=== PATIENT | female | born 1930 | race Caucasian/White ===

== ENCOUNTER 2017-06-16 15:49 | Observation (INO) | payer OTHER ==
--- NOTE | 2017-06-16 16:40 | PDOC ---
History of Present Illness <Lorenzo Whitfield - Last Filed: 06/16/17 18:53> <Nadia Garner - Last Filed: 06/16/17 19:55> - General History Source: Patient Exam Limitations: No Limitations - History of Present Illness Initial Comments: 06/16/17 18:04 The patient is an 87 year old female with past medical history of hypertension, PA x2, dementia, and anxiety who was brought in by her daughter for hallucinations that began last night. As per daughter, the patient is hallucinating that there are people in her house and that she is watching two young children. The daughter explains that this symptom is not typical of her dementia baseline where the patient is typically disoriented to time. The daughter adds that the patient finished a course of antibiotics to treat a UTI two days ago. They do notice sIn the ED, the patient is a asymptomatic. She denies any fever, chills, nausea, vomiting, diarrhea, cough, shortness of breath , chest pain, urinary symptoms, or headache. No self injurious or threatening behavior. PCP: The patient has a visiting doctors service. Cardiology: At [facility] <Deedee Rios - Last Filed: 06/16/17 20:01> - General Chief Complaint: Psychiatric Stated Complaint: CONFUSION Time Seen by Provider: 06/16/17 15:52 Past History <Lorenzo Whitfield - Last Filed: 06/16/17 18:53> <Nadia Garner - Last Filed: 06/16/17 19:55> <Deedee Rios - Last Filed: 06/16/17 20:01> - Past Medical History Allergies/Adverse Reactions: Allergies Allergy/AdvReac Type Severity Reaction Status Date / Time lisinopril Allergy Verified 06/16/17 15:52 Home Medications: Ambulatory Orders Aspirin [ASA -] 81 mg PO DAILY 06/16/17 Donepezil HCl 5 mg PO DAILY 06/16/17 Hydrochlorothiazide [Hctz -] 12.5 mg PO DAILY 06/16/17 Losartan Potassium [Cozaar] 500 mg PO DAILY 06/16/17 Metformin HCl [Metformin HCl ER] 500 mg PO TID 06/16/17 Metoprolol Succinate [Toprol Xl] 100 mg PO DAILY 06/16/17 Rosuvastatin Calcium [Crestor] 10 mg PO DAILY 06/16/17 Sitagliptin Phosphate [Januvia] 50 mg PO DAILY 06/16/17 Review of Systems - Review of Systems Able to Perform ROS?: Yes Comments:: 06/16/17 18:04 History may be limited due to dementia CONSTITUTIONAL: No reported: Fever, Chills, Diaphoresis, Generalized Weakness, Malaise, Loss of Appetite HEENT: No reported: Rhinorrhea, Nasal Congestion, Throat Pain, Throat Swelling, Difficulty Swallowing, Mouth Swelling, Ear Pain, Eye Pain, Visual Changes CARDIOVASCULAR: No reported: Chest Pain, Syncope, Palpitations, Irregular Heart Rate, Lightheadedness, Peripheral Edema RESPIRATORY: No reported: Cough, Shortness of Breath, SOB with Exertion, Orthopnea, Wheezing , Stridor, Hemoptysis GASTROINTESTINAL: No reported: Abdominal pain, Abdominal Distension, Nausea, Vomiting, Diarrhea, Constipation, Melena, Hematochezia GENITOURINARY: No reported: Dysuria, Frequency, Urgency, Hesitancy, Flank Pain, Genital Pain MUSCULOSKELETAL: No reported: Myalgia, Arthralgia, Joint Swelling, Back pain, Neck Pain SKIN: No reported: Rash, Itching, Pallor HEMEATOLOGIC/IMMUNOLOGIC: No reported: Easy Bleeding, Easy Bruising, Lymphadenopathy, Frequent infections ENDOCRINE: No reported: Unexplained Weight Gain, Unexplained Weight Loss, Heat Intolerance , Cold Intolerance NEUROLOGIC: No reported: Headache, Focal Weakness, Paresthesias, Vertigo, Lightheadedness, Unsteady Gait, Seizure, Mental Status Changes, Incontinence PSYCHIATRIC: Reported: Hallucinations No reported: Anxiety, Depression All Other Systems: Reviewed and Negative <Deedee Rios - Last Filed: 06/16/17 20:01> *Physical Exam - Vital Signs Last Vital Signs Temp Pulse Resp BP Pulse Ox 98.3 F 67 20 156/82 99 06/16/17 19:52 06/16/17 19:52 06/16/17 19:52 06/16/17 19:52 06/16/17 19:52 <Nadia Garner - Last Filed: 06/16/17 19:55> - Vital Signs Last Vital Signs Temp Pulse Resp BP Pulse Ox 97.5 F L 78 17 143/65 100 06/16/17 15:51 06/16/17 15:51 06/16/17 15:51 06/16/17 15:51 06/16/17 15:51 - Physical Exam Comments: 06/16/17 18:05 GENERAL: The patient is awake, alert, and oriented x 2 Nontoxic - in no acute distress. HEAD: Normocephalic, atraumatic. EYES: extraocular movements intact, sclera anicteric, conjunctiva clear. ENT: Normal voice, Moist mucous membranes. NECK: Normal range of motion, supple LUNGS: Breath sounds equal, clear to auscultation bilaterally. No wheezes, no rhonchi, no rales. HEART: Regular rate and rhythm, normal S1 and S2 without murmur, rub or gallop. ABDOMEN: Soft, nontender, normoactive bowel sounds. No guarding, no rebound. . No CVA tenderness EXTREMITIES: Normal range of motion, +1 edema b/l. No cords, erythema, or tenderness. PSYCH: Normal mood, normal affect. SKIN: Warm, Dry, normal turgor, NEURO: Mental status: The patient is oriented x2. Cranial nerves: Cranial nerves II through XII are intact Motor: The upper extremities are 5 over 5 in all muscle groups. The lower extremities are 5 over 5 in all muscle groups. Negative pronator drift Sensation: Sensation is intact to light touch throughout. <Deedee Rios - Last Filed: 06/16/17 20:01> Heart Score/ECG Review - ECG Impressions Comment:: 06/16/17 17:30 Twelve-lead EKG was performed and reviewed by me. There is normal sinus rhythm with a normal rate. rate of 70 left axis deviation There is abnormal R wave progression inferior q waves <Lorenzo Whitfield - Last Filed: 06/16/17 18:53> ED Treatment Course - LABORATORY CBC & Chemistry Diagram: 06/16/17 17:20 06/16/17 17:20 - RADIOLOGY Radiology Studies Ordered: Category Date Time Status HEAD CT WITHOUT CONTRAST [CT] Stat CT Scan 06/16/17 16:35 Ordered <Lorenzo Whitfield - Last Filed: 06/16/17 18:53> - LABORATORY CBC & Chemistry Diagram: 06/16/17 17:20 06/16/17 17:20 - ADDITIONAL ORDERS Additional order review: Laboratory Results 06/16/17 06/16/17 18:53 17:20 Sodium 132 L Potassium 3.6 Chloride 97 L Carbon Dioxide 27 Anion Gap 8 BUN 20 H Creatinine 1.2 Creat Clearance w eGFR 42.40 Random Glucose 267 H Calcium 9.7 Total Bilirubin 0.6 AST 19 ALT 13 Alkaline Phosphatase 68 Total Protein 7.1 Albumin 3.5 Urine Color Yellow Urine Appearance Clear Urine pH 5.0 Ur Specific Wing 1.015 Urine Protein Negative Urine Glucose (UA) Negative Urine Ketones Negative Urine Blood Negative Urine Nitrite Negative Urine Bilirubin Negative Urine Urobilinogen 0.2 Ur Leukocyte Esterase Negative 06/16/17 17:20 RBC 4.64 MCV 89.0 MCHC 32.9 RDW 14.3 MPV 10.3 Neutrophils % 78.5 Lymphocytes % 10.4 Monocytes % 8.0 Eosinophils % 0.6 Basophils % 2.5 H - RADIOLOGY Radiology Studies Ordered: Category Date Time Status CHEST PA & LAT [RAD] Stat Radiology 06/16/17 19:52 Ordered <Nadia Garner - Last Filed: 06/16/17 19:55> - LABORATORY CBC & Chemistry Diagram: 06/16/17 17:20 06/16/17 17:20 - ADDITIONAL ORDERS Additional order review: Laboratory Results 06/16/17 17:20 Sodium 132 L Potassium 3.6 Chloride 97 L Carbon Dioxide 27 Anion Gap 8 BUN 20 H Creatinine 1.2 Creat Clearance w eGFR 42.40 Random Glucose 267 H Calcium 9.7 Total Bilirubin 0.6 AST 19 ALT 13 Alkaline Phosphatase 68 Total Protein 7.1 Albumin 3.5 06/16/17 17:20 RBC 4.64 MCV 89.0 MCHC 32.9 RDW 14.3 MPV 10.3 Neutrophils % 78.5 Lymphocytes % 10.4 Monocytes % 8.0 Eosinophils % 0.6 Basophils % 2.5 H <Deedee Rios - Last Filed: 06/16/17 20:01> Medical Decision Making - Medical Decision Making 06/16/17 16:36 87y F hx of htn, hl, dm, cad s/p CABG, dementia, presents with AMS. Per daugther , the patient was recently treated with a UTI by her visiting doctor. For the pst 2 days, she has been having some occasional hallucinations where she is seeing things (ie: people that arent there). The pt has no other ocmplaints including cp, abd pain, headache, vision change, numbness/tingling/weakness, n/v , f/c, diarrhea, foul smelling urine. consider anemia, metabolic dernagement, glucose derangement, occult infection will ck labs, ua, ct head, ekg will reassess A portion of this note was documented by scribe services under my direction. I have reviewed the details of the note, within reason, and agree with the documentation with the following case summary and management plan written by me 06/16/17 18:06 ct head negative for acute disease labs noted for wbc of 15 labs otherwise unremaraklble UA/culture pending 06/16/17 18:53 pt will be signed out to dr. garner to reassess and disposition pt just urinated and will be sent ot the lab <Lorenzo Whitfield - Last Filed: 06/16/17 18:53> *DC/Admit/Observation/Transfer <Lorenzo Whitfield - Last Filed: 06/16/17 18:53> - Discharge Dispostion Admit: Yes <Nadia Garner - Last Filed: 06/16/17 19:55> - Attestations Scribe Attestion: 06/16/17 18:05 Documentation prepared by Deedee Rios, acting as vice president medical affairs for Lorenzo Whitfield MD. <Deedee Rios - Last Filed: 06/16/17 20:01> Diagnosis at time of Disposition: Diarrhea, Abdominal distension (gaseous), Altered mental state, Dehydration - Referrals Referrals: STAFF,NOT ON [Primary Care Provider] -
[2017-06-16 17:43] LABS: BASOPHIL 2.5 % (0-2.0); EOSINOPHIL 0.6 % (0-4.5); MCH 29.3 pg (25.7-33.7); MCHC 32.9 g/dl (32.0-36.0); MEAN PLT VOLUME 10.3 fl (7.5-11.1); NEUTROPHILS 78.5 % (42.8-82.8); PLATELET COUNT 304 K/MM3 (134-434); RDW 14.3 % (11.6-15.6); WHITE BLOOD COUNT 15.8 K/mm3 (4.0-10.8)
[2017-06-16 17:53] LABS: ALBUMIN 3.5 g/dl (3.5-5.0); ALK PHOS 68 U/L (32-92); ANION GAP 8 (8-16); BILIRUBIN,TOTAL 0.6 mg/dl (0.2-1.0); CALCIUM 9.7 mg/dl (8.4-10.2); CO2 27 mmol/L (22-28); CREATININE 1.2 mg/dl (0.6-1.3); GLUCOSE,RANDOM 267 mg/dl (74-106); SGOT/AST 19 U/L (10-42); SGPT/ALT 13 U/L (10-40); TOT PROT 7.1 g/dl (6.4-8.3)
[2017-06-16 19:00] LABS: URINE APPEARANCE Clear; URINE BILIRUBIN Negative (NEGATIVE); URINE BLOOD Negative (NEGATIVE); URINE GLUCOSE (UA) Negative (NEGATIVE); URINE KETONE Negative (NEGATIVE); URINE LEUK ESTERASE Negative (NEGATIVE); URINE NITRITE Negative (NEGATIVE); URINE PROTEIN Negative (NEGATIVE); URINE UROBILINOGEN 0.2 (0.2-1.0)
[2017-06-16 19:01] LABS: URINE COLOR YELLOW
[2017-06-16] MEDS ORDERED: ONDANSETRON 4 MG/2 ML VIAL IVPB PRN (21:41)
--- NOTE | 2017-06-16 21:43 | HP ---
Admitting History and Physical - Admission Chief Complaint: hallucinations History of Present Illness: 87 year old Syriac speaking female with past medical history of hypertension, CO x2, dementia, TIA, osteoporosis, and anxiety who was brought in by her daughter for hallucinations that began last night. Pt daughter at bedside and provided much of history and translation. Pt denies sob, cp, cough, fevers, chills, nausea, vomiting. Denies numbness, tingling, visual changes, speech changes, syncope, heart palps, headache, limb weakness. Pt's Dtr reports pt had some soiled undergarments but no diarrhea that she could recall. Pt denies any abdominal pain. 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 Denies tobacco, rec drugs, alcohol Famhx- [place] PCP- Doctors who make house calls Cards- Dr Smith [facility] [phone] Ros neg except for HPI Pex Gen- in nad, alert Hent- at/nc, mumtaz, neck supple, trachea midline Resp- no cough, lungs ctab, no ronchi, no wheeze, no rales, no cyanosis Cards- s1s2 heard, no JVD, trace leg edema, RRR Musk- normal arom bue/ble, no back pain psych- cooperative, normal affect, no agitation Neuro- no focal deficits, speech clear, cn 2-12 grossly intact, strength 5/5 bue/ble Gi- distended abdomen, no guarding, no rebound, no rigidity Skin- intact, no erythema Prob list hallucinations (visual) AMS dm htn cad dementia anxiety distended abdomen A/p- 87 year old female with past medical history of cad s/p cardiac stents, hypertension, osteoporosis, CO x2, TIA, hlp dementia, and anxiety who was brought in by her daughter for hallucinations that began last night. 1.AMS Pt alert and oriented x 3 on exam. Pt's DTR reports episode of pt hallucinating seeing people. recently treated for UTI with ABX. CTH negative Cxr appears clear by my eye Ucx pending, Ua with no signs of infection Follow up tsh, rpr, b12, psych/ neurology consult 2. Leukocytosis ?dehydration Monitor labs 3. Distended abdomen Check AXR 4.Hyponatremia possibly combination dehydration +/- hctz hold diuretic monitor labs 5.DM SSI Monitor F/S diabetic diet 6.HTn Stable hold hctz 2/2 mild hyponatremia and possible dehydration 7.Dementia cont home meds 8. Anxiety (stable) Monitor of meds 9. Cad cont ASA dvt prophy scds, oob, hep sq fen gentle hydration diabetic diet dispo- admission for AMS History Source: Patient, Family Member, Medical Record Limitations to Obtaining History: Dementia, Language Barrier - Smoking History Smoking history: Never smoked Have you smoked in the past 12 months: No - Alcohol/Substance Use Hx Alcohol Use: No Home Medications - Allergies Allergies/Adverse Reactions: Allergies Allergy/AdvReac Type Severity Reaction Status Date / Time lisinopril Allergy Verified 06/16/17 15:52 - Home Medications Home Medications: Ambulatory Orders Aspirin [ASA -] 81 mg PO DAILY 06/16/17 Donepezil HCl 5 mg PO DAILY 06/16/17 Hydrochlorothiazide [Hctz -] 12.5 mg PO DAILY 06/16/17 Losartan Potassium [Cozaar] 500 mg PO DAILY 06/16/17 Metformin HCl [Metformin HCl ER] 500 mg PO TID 06/16/17 Metoprolol Succinate [Toprol Xl] 100 mg PO DAILY 06/16/17 Rosuvastatin Calcium [Crestor] 10 mg PO DAILY 06/16/17 Sitagliptin Phosphate [Januvia] 50 mg PO DAILY 06/16/17 Physical Examination Vital Signs: Vital Signs Temperature 98.3 F 06/16/17 19:52 Pulse Rate 67 06/16/17 19:52 Respiratory Rate 20 06/16/17 19:52 Blood Pressure 156/82 06/16/17 19:52 O2 Sat by Pulse Oximetry (%) 99 06/16/17 19:52 Visit type - Emergency Visit Emergency Visit: Yes ED Registration Date: 06/16/17 Care time: The patient presented to the Emergency Department on the above date and was hospitalized for further evaluation of their emergent condition. - New Patient This patient is new to me today: Yes Date on this admission: 06/18/17 - Critical Care Critical Care patient: No
[2017-06-16 22:48] VITALS: BMI 23.7
[2017-06-16] MEDS ORDERED: QUEtiapine FUMARATE 25 MG TABLET (FP) PO ONE (23:24)
[2017-06-16] MEDS ORDERED: INSULIN (NOVOLOG) ASPART 100 UNITS/ML 10ML VIAL ONE (23:34)
[2017-06-16] MEDS: SODIUM CHLORIDE 1,000 ML IV SCH (23:47)
[2017-06-16] MEDS: INSULIN SLIDING SCALE (NOVOLOG) 1 VIAL SQ SCH (23:47)
[2017-06-17] MEDS: INSULIN SLIDING SCALE (NOVOLOG) 1 VIAL SQ SCH ×4 (06:27→22:02)
--- NOTE | 2017-06-17 08:41 | CON.NEURO ---
Consult Consult Specialty:: Neurology Reason for Consultation:: AMS - History of Present Illness History of Present Illness: 87 year old Serbian speaking female with past medical history of DM , hypertension, KS x2, dementia, TIA, osteoporosis, and anxiety who was brought in by her daughter for hallucinations that began last night. Pt daughter at bedside and provided much of history and translation. Pt is living alone and has had AMS since past week ; her aid is changed and her daughter is not sure if she has been enough food intake . She has had UTI and has received abx ; she has been delirious and hallucinating lately; her gait is worsening , uses walker at home; denies fall, dysarthria , headache , visual symptoms etc. 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 Denies tobacco, rec drugs, alcohol Famhx- [place] PCP- Doctors who make house calls Cards- Dr Smith [facility] [phone] Ros neg except for HPI - Past Medical History ...: No - Alcohol/Substance Use Hx Alcohol Use: No - Smoking History Smoking history: Never smoked Have you smoked in the past 12 months: No Home Medications - Allergies Allergies/Adverse Reactions: Allergies Allergy/AdvReac Type Severity Reaction Status Date / Time lisinopril Allergy Verified 06/16/17 15:52 - Home Medications Home Medications: Ambulatory Orders Aspirin [ASA -] 81 mg PO DAILY 06/16/17 Donepezil HCl 5 mg PO DAILY 06/16/17 Hydrochlorothiazide [Hctz -] 12.5 mg PO DAILY 06/16/17 Losartan Potassium [Cozaar] 500 mg PO DAILY 06/16/17 Metformin HCl [Metformin HCl ER] 500 mg PO TID 06/16/17 Metoprolol Succinate [Toprol Xl] 100 mg PO DAILY 06/16/17 Rosuvastatin Calcium [Crestor] 10 mg PO DAILY 06/16/17 Sitagliptin Phosphate [Januvia] 50 mg PO DAILY 06/16/17 Physical Exam-Neuro Vital Signs: Vital Signs Temperature 98.0 F 06/17/17 06:11 Pulse Rate 109 H 06/17/17 06:11 Respiratory Rate 20 09/10/17 06:29 Blood Pressure 144/70 06/17/17 06:11 O2 Sat by Pulse Oximetry (%) 94 L 06/17/17 06:29 Constitutional: Yes: Well Nourished, No Distress Neck: Yes: Supple Cardiovascular: Yes: Regular Rate and Rhythm Respiratory: Yes: Regular Musculoskeletal: Yes: WNL Edema: No Psychiatric: Yes: Alert - Neuro Exam Level Of Consciousness: Yes: Oriented to Person Eyes: Yes: PERRLA Speech: WNL Dominant Hand: Right Cranial Nerves II-XII Intact: Yes Gag: Present DTR's: 1+ Left Bicep, 1+ Right Bicep, 1+ Left Tricep, 1+ Right Tricep, 1+ Left Brachioradialis, 1+ Right Brachioradialis, 1+ Left Achilles, 1+ Right Achilles Babinski: Absent Response to light touch: Normal Coordination: Normal: Finger to Nose Motor Strength: 4/5: Left Leg, Right Leg (diffuse weakness LEs), 5/5: Left Arm, Right Arm (No drift ) Gait: Deferred Imaging - Results Cat Scan: Report Reviewed, Image Reviewed (No acute finding) Problem List - Problems (1) Altered mental state Code(s): R41.82 - ALTERED MENTAL STATUS, UNSPECIFIED (2) Dehydration Code(s): E86.0 - DEHYDRATION (3) Diabetes Code(s): E11.9 - TYPE 2 DIABETES MELLITUS WITHOUT COMPLICATIONS Qualifiers: Diabetes mellitus type: type 2 (4) Gait abnormality Code(s): R26.9 - UNSPECIFIED ABNORMALITIES OF GAIT AND MOBILITY (5) Dementia Code(s): F03.90 - UNSPECIFIED DEMENTIA WITHOUT BEHAVIORAL DISTURBANCE Qualifiers: Dementia type: unspecified type Assessment/Plan 87 y/o w PMH of DM, UTI, gait dysfunction , KS s/p stent p/w AMS, worsening dementia, gait dysfunction and hallucination . Possible delirium in the setting of dementia , poor hydration ; no evidence of Lewy Body Dementia , or parkinsonism. Gait dysfunction , possible neuropathic in nature. LOW NL b12 ; 296 -B12 , 1000 mcg im , daily x5, weekly x5 and monthly x 5 . -Increase Aricept 10 mg qd -Hydration -PT/OT -TSH, RPR, -Neuropathy w/u , including Vit D, SPEP, RF, ESR -MRI brain wo -EMG as OP -Fall precautions Health maintenance per primary team. Thank you . DANIA Keyes MD
[2017-06-17 08:56] LABS: EOSINOPHIL 1.3 % (0-4.5); MCH 30.6 pg (25.7-33.7); MCHC 34.1 g/dl (32.0-36.0); MEAN CELL VOLUME 89.5 fl (80-96); MEAN PLT VOLUME 10.6 fl (7.5-11.1); NEUTROPHILS 68.2 % (42.8-82.8); PLATELET COUNT 368 K/MM3 (134-434); RDW 14.8 % (11.6-15.6); WHITE BLOOD COUNT 15.9 K/mm3 (4.0-10.8)
--- NOTE | 2017-06-17 09:03 | PN ---
Physical Exam: SUBJECTIVE: Patient seen and examined. Sleeping but arousable, offers no complaints. OBJECTIVE: Vital Signs Period Temp Pulse Resp BP Sys/Cope Pulse Ox Last 24 Hr 98.0 F-98.1 F 90-109 20-20 143-144/68-70 94-95 GENERAL: The patient is awake, alert, oriented to person and place, in no acute distress. HEAD: Normal with no signs of trauma. EYES: PERRL, extraocular movements intact, sclera anicteric, conjunctiva clear. No ptosis. ENT: Ears normal, nares patent, oropharynx clear without exudates, moist mucous membranes. NECK: Trachea midline, full range of motion, supple. LUNGS: Breath sounds equal, clear to auscultation bilaterally, no wheezes, no crackles, no accessory muscle use. HEART: Regular rate and rhythm, S1, S2 without murmur, rub or gallop. ABDOMEN: Soft, nontender, nondistended, normoactive bowel sounds, no guarding, no rebound, no hepatosplenomegaly, no masses. EXTREMITIES: 2+ pulses, warm, well-perfused, no edema. NEUROLOGICAL: Cranial nerves II through XII grossly intact. Normal speech, 4/5 upper and lower extremity strength bilaterally, gait not observed. Family reports she continues to hallucinate, saying she was kidnapped and not allowed to see her family or stretch out her body. PSYCH: Normal mood, normal affect. SKIN: Warm, dry, normal turgor, no rashes or lesions noted Laboratory Results - last 24 hr 06/16/17 06/17/17 06/17/17 22:54 05:48 06:00 WBC 15.9 H RBC 4.60 Hgb 14.1 Hct 41.2 MCV 89.5 MCH 30.6 MCHC 34.1 RDW 14.8 Plt Count 368 D MPV 10.6 Neutrophils % 68.2 Lymphocytes % 22.5 D Monocytes % 8.0 Eosinophils % 1.3 D Basophils % 0.0 POC Glucometer 211 208 Active Medications Generic Name Dose Route Start Last Admin Trade Name Freq PRN Reason Stop Dose Admin Acetaminophen 650 mg 06/16/17 21:41 Tylenol - PO Q4H PRN FEVER OR PAIN Aspirin 81 mg 06/17/17 10:00 Asa - PO DAILY ROBERT Donepezil HCl 5 mg 06/17/17 10:00 Aricept - PO DAILY ROBERT Heparin Sodium (Porcine) 5,000 unit 06/17/17 10:00 Heparin - SQ BID ROBERT Sodium Chloride 1,000 mls @ 50 mls/hr 06/16/17 22:00 06/16/17 23:47 Normal Saline - IV 06/17/17 22:00 50 mls/hr ASDIR ROBERT Administration Insulin Aspart 1 vial 06/16/17 22:00 06/17/17 06:27 Novolog Vial Sliding Scale - SQ 2 units ACHS ROBERT Administration Protocol Losartan Potassium 50 mg 06/17/17 10:00 Cozaar - PO DAILY ROBERT Metoprolol Succinate 100 mg 06/17/17 10:00 Toprol Xl - PO DAILY ROBERT Ondansetron HCl 4 mg 06/16/17 21:41 Zofran Injection IVPB Q4H PRN NAUSEA AND/OR VOMITING Rosuvastatin Calcium 10 mg 06/17/17 22:00 Crestor - PO HS ROBERT Imaging CTH 06/16: Moderate cerebral atrophy and chronic white matter ischemic changes, no acute intracranial process CXR 06/16: No cardiopulmonary pathology AXR 06/16: Air in distal colon with paucity of air in proximal to mid colon ASSESSMENT/PLAN: 87 year old female with a history of TIA, CAD and ND s/p stents , HTN, HLD, dementia, and anxiety placed in observation for hallucinations. 1. NEURO Hallucinations, gait instability -Vit B 12 low-normal; per neuro recommendations: supplement 1000 mcg daily x 5 days, weekly x 5 wks, monthly x 5 months -TSH within normal limits, RPR non-reactive -Follow up ammonia -Brain MRI ordered but refused by family -EMG outpatient -Increase Aricept to 10mg daily -Send urine culture (UA negative, but recently completed course of abx) to rule out metabolic encephalopathy secondary to sepsis -Await psychiatry evaluation 2. Leukocytosis -No focal infectious symptoms, was recently treated for UTI -Send blood and urine cultures -Follow 3. Distended abdomen -Had normal BM today -Monitor -Consider CTAP 4. Hyponatremia -Likely secondary to dehydration/diuretic use -Mild, unlikely responsible for AMS -Hold HCTZ -Gentle hydration -Follow 5.DM -FSACHS -Resume Metformin/Januvia (short expected length of stay, PO intake has been good here) -ISS coverage as needed -Diabetic diet 6. HTN -At goal for age -Observe off medications 7. Dementia -Increase Aricept as above -Fall risk precautions 8. CAD -Cont ASA 9. F/E/N -Hyponatremia- suspect hypovolemic, NS 100 mLs/hr -Hypokalemia- replete with 40 mEq PO -Diabetic diet -PO intake adequate 10. Ppx -Sqh -PT DISPO: Observation. Visit type - Emergency Visit Emergency Visit: Yes ED Registration Date: 06/16/17 Care time: The patient presented to the Emergency Department on the above date and was hospitalized for further evaluation of their emergent condition. - New Patient This patient is new to me today: Yes Date on this admission: 06/17/17 - Critical Care Critical Care patient: No
[2017-06-17 10:03] LABS: THYROID STIMULATING HORMONE 2.44 uIU/ml (0.358-3.74)
[2017-06-17] MEDS ORDERED: sitaGLIPtin PHOSPHATE 50 MG TABLET PO SCH (11:00)
[2017-06-17] MEDS: ACETAMINOPHEN 325 MG TABLET (FP) PO PRN (11:15)
[2017-06-17] MEDS: HEPARIN NA (PORCINE) 5,000 UNITS/ML 1ML VIAL SQ SCH ×2 (11:15→21:14)
[2017-06-17] MEDS: ASPIRIN 81 MG CHEWABLE TABLETS PO SCH (11:15)
[2017-06-17] MEDS: METOPROLOL SUCCINATE 100 MG TAB.SR.24H (FP) PO SCH (11:15)
[2017-06-17] MEDS: DONEPEZIL HCL 5 MG TABLET (FP) PO SCH ×4 (11:15→21:14)
[2017-06-17] MEDS: LOSARTAN POTASSIUM 50 MG TABLET (FP) PO SCH (11:15)
[2017-06-17] MEDS ORDERED: SODIUM CHLORIDE 1,000 ML IV SCH (13:30)
[2017-06-17 13:41] LABS: ALBUMIN 2.9 g/dl (3.5-5.0); ALK PHOS 54 U/L (32-92); ANION GAP 10 (8-16); BILIRUBIN,TOTAL 0.5 mg/dl (0.2-1.0); CALCIUM 8.3 mg/dl (8.4-10.2); CO2 24 mmol/L (22-28); CREATININE 1.1 mg/dl (0.6-1.3); GLUCOSE,RANDOM 235 mg/dl (74-106); SGOT/AST 21 U/L (10-42); SGPT/ALT 10 U/L (10-40); TOT PROT 5.8 g/dl (6.4-8.3)
[2017-06-17] MEDS ORDERED: POTASSIUM CHLORIDE TABS 20 MEQ TABLET.ER (FP) PO ONE (13:47)
[2017-06-17] MEDS ORDERED: PATIENT'S OWN MEDICATION (NON-FORMULARY) (Metformin Hcl [Metformin Hcl Er] 500 MG) PO SCH (14:00)
[2017-06-17] MEDS: metFORMIN HCL 500 MG TABLET (FP) PO SCH ×2 (14:57→18:03)
[2017-06-17] MEDS: CYANOCOBALAMIN (VITAMIN B-12) 1000 MCG/1 ML VIAL IM SCH (14:59)
[2017-06-17] MEDS: sitaGLIPtin PHOSPHATE 25 MG TABLET (FP) PO SCH (19:36)
[2017-06-17] MEDS: ROSUVASTATIN CA 10 MG TABLET (FP) PO SCH (21:14)
[2017-06-17] MEDS: SODIUM CHLORIDE 1,000 ML IV SCH (21:14)
[2017-06-18] MEDS: sitaGLIPtin PHOSPHATE 25 MG TABLET (FP) PO SCH (06:24)
[2017-06-18] MEDS: metFORMIN HCL 500 MG TABLET (FP) PO SCH ×3 (06:24→17:14)
[2017-06-18] MEDS: INSULIN SLIDING SCALE (NOVOLOG) 1 VIAL SQ SCH ×4 (06:25→22:05)
--- NOTE | 2017-06-18 08:24 | CON.PSY ---
Psychiatry Consult Chief Complaint: Patient with a history of DEmentia began experiencing Visual Hallucinations. She recently had a course of Antibiotics. Has a history of dementia. Symptoms: reports: Hallucinations - Previous Psychiatric Treatment Outpatient: None Inpatient: None - Previous Substance Abuse Treatment Outpatient: None Inpatient: None - Current Medications Current Medications: Active Medications Acetaminophen (Tylenol -) 650 mg PO Q4H PRN PRN Reason: FEVER OR PAIN Last Admin: 06/17/17 11:15 Dose: 650 mg Aspirin (Asa -) 81 mg PO DAILY [facility] Last Admin: 06/17/17 11:15 Dose: 81 mg Cyanocobalamin (Vitamin B12 Injection -) 1,000 mcg IM DAILY [facility] Stop: 06/21/17 10:01 Last Admin: 06/17/17 14:59 Dose: 1,000 mcg Donepezil HCl (Aricept -) 10 mg PO HS [facility] Last Admin: 06/17/17 21:14 Dose: 10 mg Heparin Sodium (Porcine) (Heparin -) 5,000 unit SQ BID [facility] Last Admin: 06/17/17 21:14 Dose: 5,000 unit Insulin Aspart (Novolog Vial Sliding Scale -) 1 vial SQ ACHS [facility] PRN Reason: Protocol Last Admin: 06/18/17 06:25 Dose: Not Given Losartan Potassium (Cozaar -) 50 mg PO DAILY [facility] Last Admin: 06/17/17 11:15 Dose: 50 mg Metformin HCl (Glucophage -) 500 mg PO TIDAC [facility] Last Admin: 06/18/17 06:24 Dose: 500 mg Metoprolol Succinate (Toprol Xl -) 100 mg PO DAILY [facility] Last Admin: 06/17/17 11:15 Dose: 100 mg Ondansetron HCl (Zofran Injection) 4 mg IVPB Q4H PRN PRN Reason: NAUSEA AND/OR VOMITING Rosuvastatin Calcium (Crestor -) 10 mg PO HS [facility] Last Admin: 06/17/17 21:14 Dose: 10 mg Sitagliptin Phosphate (Januvia -) 25 mg PO DAILY@0700 [facility] Last Admin: 06/18/17 06:24 Dose: 25 mg - Allergies Allergies: Allergies Allergy/AdvReac Type Severity Reaction Status Date / Time lisinopril Allergy Verified 06/16/17 15:52 - Current Living Status Usual Living Arrangement: With Significant Other - Current Mental Status Evaluation Appearance: Well Groomed Attitude: Cooperative - Affect Affect: Full Range Appropriateness: Appropriate to Content - Mood Mood: Euthymic - Speech/Language Expressive: Delayed - Psychomotor Activity Psychomotor Activity: Slowed - Thought Process Thought Process: Circumstantial - Thought Content Hallucinations: Present Type: Auditory Delusions: Absent - Self Perception Self Perception: No Impairment - Cognition Attention: Alert Memory, Immediate Recall: Impaired Memory, Short Term: 1/3 Memory, Remote with Promptin/3 - Concentration Serial Sevens Intact: No Simple Calculations Intact: No - Abstraction Proverb Interpretation: Impaired Judgement: Intact - Insight Insight: Impaired - Impulse Control Impulse Control: Minimally Impaired - Suicidal Ideation Suicidal Ideation: No - Homicidal Ideation Homicidal Ideation: No Assessment/Plan 1) Seroquel 25mg po hs.
[2017-06-18 08:38] LABS: BASOPHIL 0.4 % (0-2.0); EOSINOPHIL 2.3 % (0-4.5); MCH 30.2 pg (25.7-33.7); MCHC 33.3 g/dl (32.0-36.0); MEAN CELL VOLUME 90.8 fl (80-96); MEAN PLT VOLUME 9.9 fl (7.5-11.1); NEUTROPHILS 73.8 % (42.8-82.8); PLATELET COUNT 274 K/MM3 (134-434); RDW 14.9 % (11.6-15.6); WHITE BLOOD COUNT 11.8 K/mm3 (4.0-10.8)
[2017-06-18 08:48] LABS: ALBUMIN 2.8 g/dl (3.5-5.0); ALK PHOS 54 U/L (32-92); ANION GAP 7 (8-16); BILIRUBIN,TOTAL 0.7 mg/dl (0.2-1.0); CALCIUM 8.4 mg/dl (8.4-10.2); CO2 22 mmol/L (22-28); GLUCOSE,RANDOM 183 mg/dl (74-106); SGOT/AST 21 U/L (10-42); SGPT/ALT 13 U/L (10-40); TOT PROT 5.9 g/dl (6.4-8.3)
--- NOTE | 2017-06-18 10:18 | PN ---
Physical Exam: SUBJECTIVE: Patient seen and examined, patient is alert and oriented times person and place, reports pain to posterior knees upon movement. OBJECTIVE: patient is a 87 y/o female with a past medical history of hypertension, [place] x2, dementia, TIA, osteoporosis, and anxiety. patient was admitted from the emergency department for altered mental status, delirum and dehydration Vital Signs Period Temp Pulse Resp BP Sys/Cope Pulse Ox Last 24 Hr 98.5 F-98.6 F 73-76 16-18 104-153/36-66 92-96 GENERAL: The patient is awake, alert, and fully oriented, in no acute distress. HEAD: Normal with no signs of trauma. EYES: PERRL, extraocular movements intact, sclera anicteric, conjunctiva clear. No ptosis. ENT: Ears normal, nares patent, oropharynx clear without exudates, moist mucous membranes. NECK: Trachea midline, full range of motion, supple. LUNGS: Breath sounds equal, clear to auscultation bilaterally, no wheezes, no crackles, no accessory muscle use. HEART: Regular rate and rhythm, S1, S2 without murmur, rub or gallop. ABDOMEN: Soft, nontender, nondistended, normoactive bowel sounds, no guarding, no rebound, no hepatosplenomegaly, no masses. EXTREMITIES: 2+ pulses, warm, well-perfused, no edema. no deformity noted, point tenderness noted to posterior knees NEUROLOGICAL: Cranial nerves II through XII grossly intact. Normal speech, gait not observed. PSYCH: Normal mood, normal affect. daughter at bedside reports she has periods of hallucinations SKIN: Warm, dry, normal turgor, no rashes or lesions noted Laboratory Results - last 24 hr 06/17/17 06/17/17 06/17/17 06:00 06:07 13:00 WBC RBC Hgb Hct MCV MCH MCHC RDW Plt Count MPV Neutrophils % Lymphocytes % Monocytes % Eosinophils % Basophils % Sodium Potassium Chloride Carbon Dioxide Anion Gap BUN Creatinine Creat Clearance w eGFR POC Glucometer Random Glucose Calcium Total Bilirubin AST ALT Alkaline Phosphatase Ammonia 25.42 Total Protein Albumin Vitamin B12 296 TSH 2.44 RPR Titer Nonreactive CBC WBC 11.8 K/mm3 (4.0-10.8) H 06/18/17 07:30 RBC 4.17 M/mm3 (3.60-5.2) 06/18/17 07:30 Hgb 12.6 GM/dl (10.7-15.3) D 06/18/17 07:30 Hct 37.9 % (32.4-45.2) 06/18/17 07:30 MCV 90.8 fl (80-96) 06/18/17 07:30 MCH 30.2 pg (25.7-33.7) 06/18/17 07:30 MCHC 33.3 g/dl (32.0-36.0) 06/18/17 07:30 RDW 14.9 % (11.6-15.6) 06/18/17 07:30 Plt Count 274 K/MM3 (134-434) D 06/18/17 07:30 MPV 9.9 fl (7.5-11.1) 06/18/17 07:30 Neutrophils % 73.8 % (42.8-82.8) 06/18/17 07:30 Lymphocytes % 16.7 % (8-40) D 06/18/17 07:30 Monocytes % 6.8 % (3.8-10.2) 06/18/17 07:30 Eosinophils % 2.3 % (0-4.5) 06/18/17 07:30 Basophils % 0.4 % (0-2.0) D 06/18/17 07:30 CMP Sodium 137 mmol/L (136-145) 06/18/17 07:30 Potassium 4.0 mmol/L (3.5-5.1) D 06/18/17 07:30 Chloride 108 mmol/L (98-107) H D 06/18/17 07:30 Carbon Dioxide 22 mmol/L (22-28) 06/18/17 07:30 Anion Gap 7 (8-16) L 06/18/17 07:30 BUN 17 mg/dl (7-18) 06/18/17 07:30 Creatinine 1.0 mg/dl (0.6-1.3) 06/18/17 07:30 Creat Clearance w eGFR 52.33 (>60) 06/18/17 07:30 POC Glucometer 171 UNITS (()) 06/18/17 06:14 Random Glucose 183 mg/dl (74-106) H D 06/18/17 07:30 Calcium 8.4 mg/dl (8.4-10.2) 06/18/17 07:30 Total Bilirubin 0.7 mg/dl (0.2-1.0) D 06/18/17 07:30 AST 21 U/L (10-42) 06/18/17 07:30 ALT 13 U/L (10-40) D 06/18/17 07:30 Alkaline Phosphatase 54 U/L (32-92) 06/18/17 07:30 Ammonia 25.42 umol/L (11-32) 06/17/17 13:00 Total Protein 5.9 g/dl (6.4-8.3) L 06/18/17 07:30 Albumin 2.8 g/dl (3.5-5.0) L 06/18/17 07:30 Vitamin B12 296 pg/ml (180-914) 06/17/17 06:00 TSH 2.44 uIU/ml (0.358-3.74) 06/17/17 06:00 Active Medications Generic Name Dose Route Start Last Admin Trade Name Tatiana PRN Reason Stop Dose Admin Acetaminophen 650 mg 06/16/17 21:41 06/17/17 11:15 Tylenol - PO 650 mg Q4H PRN Administration FEVER OR PAIN Aspirin 81 mg 06/17/17 10:00 06/17/17 11:15 Asa - PO 81 mg DAILY [facility] Administration Cyanocobalamin 1,000 mcg 06/17/17 12:30 06/17/17 14:59 Vitamin B12 Injection - IM 06/21/17 10:01 1,000 mcg DAILY [facility] Administration Donepezil HCl 10 mg 06/17/17 12:09 06/17/17 21:14 Aricept - PO 10 mg HS [facility] Administration Heparin Sodium (Porcine) 5,000 unit 06/17/17 10:00 06/17/17 21:14 Heparin - SQ 5,000 unit BID [facility] Administration Insulin Aspart 1 vial 06/16/17 22:00 06/18/17 06:25 Novolog Vial Sliding Scale - SQ Not Given ACHS [facility] Protocol Losartan Potassium 50 mg 06/17/17 10:00 06/17/17 11:15 Cozaar - PO 50 mg DAILY [facility] Administration Metformin HCl 500 mg 06/17/17 11:45 06/18/17 06:24 Glucophage - PO 500 mg TIDAC [facility] Administration Metoprolol Succinate 100 mg 06/17/17 10:00 06/17/17 11:15 Toprol Xl - PO 100 mg DAILY [facility] Administration Ondansetron HCl 4 mg 06/16/17 21:41 Zofran Injection IVPB Q4H PRN NAUSEA AND/OR VOMITING Quetiapine Fumarate 25 mg 06/18/17 22:00 Seroquel - PO HS [facility] Rosuvastatin Calcium 10 mg 06/17/17 22:00 06/17/17 21:14 Crestor - PO 10 mg HS [facility] Administration Sitagliptin Phosphate 25 mg 06/17/17 11:45 06/18/17 06:24 Januvia - PO 25 mg DAILY@0700 [facility] Administration Imaging CTH 06/16: Moderate cerebral atrophy and chronic white matter ischemic changes, no acute intracranial process CXR 06/16: No cardiopulmonary pathology AXR 06/16: Air in distal colon with paucity of air in proximal to mid colon ASSESSMENT/PLAN: 87 year old female with a history of TIA, CAD and AR s/p stents , HTN, HLD, dementia, and anxiety placed in observation for hallucinations. 1. NEURO Hallucinations, gait instability -Vit B 12 low-normal; per neuro recommendations: supplement 1000 mcg daily x 5 days, weekly x 5 wks, monthly x 5 months - reports billateral knee pain, xray of bilateral knees ordered - ammonia wnl -Brain MRI ordered but refused by family -EMG outpatient -Increased Aricept to 10mg daily - pending urine and blood cultures, (UA negative, but recently completed course of abx) to rule out metabolic encephalopathy secondary to sepsis - psychiatry evaluated and consulted, advise seroquel qhs 2. Leukocytosis -No focal infectious symptoms, was recently treated for UTI - f/u blood and urine cultures 3. Distended abdomen resolved - benign abdominal exam, large bm today 4. Hyponatremia - resolved, Likely secondary to dehydration/diuretic use -Mild, unlikely responsible for AMS -Hold HCTZ -Gentle hydration 5.DM -FSACHS -Resume Metformin/Januvia (short expected length of stay, PO intake has been good here) -ISS coverage as needed -Diabetic diet 6. HTN -At goal for age -Observe off medications 7. Dementia -Increase Aricept as above -Fall risk precautions 8. CAD -Cont ASA 9. F/E/N -Diabetic diet -PO intake adequate 10. Ppx -Sqh -PT DISPO: Observation. Visit type - Emergency Visit Emergency Visit: Yes ED Registration Date: 06/16/17 Care time: The patient presented to the Emergency Department on the above date and was hospitalized for further evaluation of their emergent condition. - New Patient This patient is new to me today: No - Critical Care Critical Care patient: No - Discharge Referral Referred to [facility] Med P.C.: No
[2017-06-18] MEDS: METOPROLOL SUCCINATE 100 MG TAB.SR.24H (FP) PO SCH (10:24)
[2017-06-18] MEDS: ASPIRIN 81 MG CHEWABLE TABLETS PO SCH (10:24)
[2017-06-18] MEDS: CYANOCOBALAMIN (VITAMIN B-12) 1000 MCG/1 ML VIAL IM SCH (10:24)
[2017-06-18] MEDS: HEPARIN NA (PORCINE) 5,000 UNITS/ML 1ML VIAL SQ SCH ×2 (10:24→21:25)
[2017-06-18] MEDS: LOSARTAN POTASSIUM 50 MG TABLET (FP) PO SCH (10:24)
[2017-06-18] MEDS: ACETAMINOPHEN 325 MG TABLET (FP) PO PRN (10:40)
[2017-06-18] MEDS: ROSUVASTATIN CA 10 MG TABLET (FP) PO SCH (21:25)
[2017-06-18] MEDS: QUEtiapine FUMARATE 25 MG TABLET (FP) PO SCH (21:25)
[2017-06-18] MEDS: DONEPEZIL HCL 5 MG TABLET (FP) PO SCH (21:25)
[2017-06-19] MEDS ORDERED: PT OWN MED DRAWER 7, Y5N ONE ×3 (06:23→15:46)
[2017-06-19] MEDS: metFORMIN HCL 500 MG TABLET (FP) PO SCH ×3 (07:00→16:37)
[2017-06-19] MEDS: INSULIN SLIDING SCALE (NOVOLOG) 1 VIAL SQ SCH ×4 (07:01→21:36)
[2017-06-19] MEDS: sitaGLIPtin PHOSPHATE 25 MG TABLET (FP) PO SCH (07:01)
--- NOTE | 2017-06-19 09:11 | DS ---
Physical Exam: SUBJECTIVE: Patient seen and examined, reports feeling better, denies any chest pain or shortness of breath. OBJECTIVE: 87 year old Cypriot speaking female with past medical history of hypertension, [place] x2, dementia, TIA, osteoporosis, and anxiety who was brought in by her daughter for hallucinations that began last night. Pt daughter at bedside and provided much of history and translation. Pt denies sob, cp, cough, fevers, chills, nausea, vomiting. Denies numbness, tingling, visual changes, speech changes, syncope, heart palps, headache, limb weakness. Pt's Dtr reports pt had some soiled undergarments but no diarrhea that she could recall. Pt denies any abdominal pain. 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 Denies tobacco, rec drugs, alcohol Famx- Pr PCP- Doctors who make house calls [phone] Cards- Dr Smith [facility] [phone] Vital Signs Period Temp Pulse Resp BP Sys/Cope Pulse Ox Last 24 Hr 97.8 F-98.4 F 71-86 18-20 122-148/48-68 95-100 PHYSICAL EXAM GENERAL: The patient is awake, alert, and fully oriented, in no acute distress. HEAD: Normal with no signs of trauma. EYES: PERRL, extraocular movements intact, sclera anicteric, conjunctiva clear. No ptosis. ENT: Ears normal, nares patent, oropharynx clear without exudates, moist mucous membranes. NECK: Trachea midline, full range of motion, supple. LUNGS: Breath sounds equal, clear to auscultation bilaterally, no wheezes, no crackles, no accessory muscle use. HEART: Regular rate and rhythm, S1, S2 without murmur, rub or gallop. ABDOMEN: Soft, nontender, nondistended, normoactive bowel sounds, no guarding, no rebound, no hepatosplenomegaly, no masses. EXTREMITIES: 2+ pulses, warm, well-perfused, no edema. no deformity noted, point tenderness noted to posterior knees, ambulatory at bedside with the assistance of a walker and 2 people NEUROLOGICAL: Cranial nerves II through XII grossly intact. Normal speech, gait not observed. PSYCH: Normal mood, normal affect. daughter at bedside reports she has periods of hallucinations SKIN: Warm, dry, normal turgor, no rashes or lesions noted LABS Laboratory Results - last 24 hr 06/18/17 06/18/17 06/18/17 07:30 07:30 16:54 Sodium 137 Potassium 4.0 D Chloride 108 H D Carbon Dioxide 22 Anion Gap 7 L BUN 17 Creatinine 1.0 Creat Clearance w eGFR 52.33 POC Glucometer 282 Random Glucose 183 H D Hemoglobin A1c % 8.6 H Calcium 8.4 Total Bilirubin 0.7 D AST 21 ALT 13 D Alkaline Phosphatase 54 Total Protein 5.9 L Albumin 2.8 L 06/18/17 06/19/17 21:35 06:16 Sodium Potassium Chloride Carbon Dioxide Anion Gap BUN Creatinine Creat Clearance w eGFR POC Glucometer 161 184 Random Glucose Hemoglobin A1c % Calcium Total Bilirubin AST ALT Alkaline Phosphatase Total Protein Albumin Imaging CTH 06/16: Moderate cerebral atrophy and chronic white matter ischemic changes, no acute intracranial process CXR 06/16: No cardiopulmonary pathology AXR 06/16: Air in distal colon with paucity of air in proximal to mid colon bilateral knee pain: no fracture noted vascular calcifications HOSPITAL COURSE: * patient was admitted from the emergency department to observation for observation for hallucinations and gait instability. metabolic encephalopathy secondary to dehydration. vitamin B 12 low-normal; per neurology recommendations: supplement 1000 mcg daily x 5 days, weekly x 5 wks, monthly x 5 months. ammonia WNL. Brain MRI ordered but refused by family. EMG outpatient. Increased Aricept to 10mg daily. urine and blood cultures are negative to date. psychiatry consulted, Dr Fink was consulted and followed, advised seroquel qhs. * patient reports ongoing bilateral foot pain, hgb a1c noted to be elevated, foot pain secondary to diabetic neuropathy. * Leukocytosis secondary to dehydration, No focal infectious symptoms, was recently treated for UTI * Distended abdomen resolved after 3 large bowel movements. * Hyponatremia, resolved, Likely secondary to dehydration/diuretic use, mild, unlikely responsible for AMS, HCTZ held, gentle hydration given. * past medical history of NIDDM, metformin/Januvia continued, ISS coverage as needed * past medical history of hypertension, blood pressure At goal for age, Observed off medications * past medical history of Dementia Increased Aricept patient was placed on strict fall risk precautions PLAN - discharge to short term rehab - continue to hold hctz, recheck serum sodium within 1 week - vitamin b12 supplementation 1000 mcg daily x 5 days, weekly x 5 wks, monthly x 5 months - continue all medications as prescribed Date of Admission:06/16/17 Date of Discharge: 06/19/17 Minutes to complete discharge: 45 Discharge Summary Reason For Visit: AMS Current Active Problems Abdominal distension (gaseous) (Acute) Altered mental state (Acute) Dehydration (Acute) Dementia (Acute) Diabetes (Acute) Diarrhea (Acute) Gait abnormality (Acute) Condition: Improved - Instructions Diet, Activity, Other Instructions: - resume diabetic diet - continue to hold hctz, recheck serum sodium within 1 week - vitamin b12 supplementation 1000 mcg daily (currently on day 3 of 5)x 5 days , weekly x 5 wks, monthly x 5 months - aricept was increased to 10mg daily - continue all medications as prescribed - please follow up with the neurologist within 4 weeks Referrals: Horacio Linder MD [Staff Physician] - 1 Month STAFF,NOT ON [Primary Care Provider] - Disposition: [facility] - Home Medications Comprehensive Discharge Medication List: Ambulatory Orders Aspirin [ASA -] 81 mg PO DAILY 06/16/17 Donepezil HCl 5 mg PO DAILY 06/16/17 Hydrochlorothiazide [Hctz -] 12.5 mg PO DAILY 06/16/17 Losartan Potassium [Cozaar] 500 mg PO DAILY 06/16/17 Metformin HCl [Metformin HCl ER] 500 mg PO TID 06/16/17 Metoprolol Succinate [Toprol Xl] 100 mg PO DAILY 06/16/17 Rosuvastatin Calcium [Crestor] 10 mg PO DAILY 06/16/17 Sitagliptin Phosphate [Januvia] 50 mg PO DAILY 06/16/17 This patient is new to me today: No Emergency Visit: Yes ED Registration Date: 06/16/17 Care time: The patient presented to the Emergency Department on the above date and was hospitalized for further evaluation of their emergent condition. Critical Care patient: No - Discharge Referral Referred to [facility] Med P.C.: No
[2017-06-19] MEDS: ACETAMINOPHEN 325 MG TABLET (FP) PO PRN ×2 (09:49→20:40)
[2017-06-19] MEDS: LOSARTAN POTASSIUM 50 MG TABLET (FP) PO SCH (09:50)
[2017-06-19] MEDS: CHOLECALCIFEROL (VITAMIN D3) 1,000 UNIT TABLET (FP) PO SCH (09:50)
[2017-06-19] MEDS: ASPIRIN 81 MG CHEWABLE TABLETS PO SCH (09:50)
[2017-06-19] MEDS: HEPARIN NA (PORCINE) 5,000 UNITS/ML 1ML VIAL SQ SCH ×2 (09:50→21:37)
[2017-06-19] MEDS: METOPROLOL SUCCINATE 100 MG TAB.SR.24H (FP) PO SCH (09:50)
[2017-06-19] MEDS: CYANOCOBALAMIN (VITAMIN B-12) 1000 MCG/1 ML VIAL IM SCH (09:54)
--- NOTE | 2017-06-19 10:32 | EKG ---
Test Reason : Blood Pressure : / mmHG Vent. Rate : 070 BPM Atrial Rate : 070 BPM P-R Int : 184 ms QRS Dur : 088 ms QT Int : 422 ms P-R-T Axes : 070 -33 075 degrees QTc Int : 455 ms NORMAL SINUS RHYTHM LEFT AXIS DEVIATION LOW VOLTAGE QRS INFERIOR INFARCT , AGE UNDETERMINED CANNOT RULE OUT ANTERIOR INFARCT , AGE UNDETERMINED NS T wave changes otherwise NO PREVIOUS ECGS AVAILABLE Confirmed by MD ANGELICA, MELO ([id number]) on 06/19/2017 10:32:48 AM Referred By: JA Confirmed By:MELO DOMINGUEZ MD
--- NOTE | 2017-06-19 10:38 | PN ---
Progress Note, Physician Chief Complaint: hallucinations and gait difficulty History of Present Illness: 87 year old [place] Islander speaking female with past medical history of DM , hypertension, [place] x2, dementia, TIA, osteoporosis, and anxiety who was brought in by her daughter for hallucinations that began last night. Pt daughter at bedside and provided much of history and translation. Pt is living alone and has had AMS since past week ; her aid is changed and her daughter is not sure if she has been enough food intake . She has had UTI and has received abx ; she has been delirious and hallucinating lately; her gait is worsening , uses walker at home; denies fall, dysarthria , headache , visual symptoms etc. Her cognition is improving and she now recognizes family members, but continues to report visual hallucinations without insight and confabulate. 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 Denies tobacco, rec drugs, alcohol Famhx- Nc - Current Medication List Current Medications: Active Medications Acetaminophen (Tylenol -) 650 mg PO Q4H PRN PRN Reason: FEVER OR PAIN Last Admin: 06/19/17 09:49 Dose: 650 mg Aspirin (Asa -) 81 mg PO DAILY [facility] Last Admin: 06/19/17 09:50 Dose: 81 mg Cholecalciferol (Vitamin D3 -) 1,000 unit PO DAILY [facility] Last Admin: 06/19/17 09:50 Dose: 1,000 unit Cyanocobalamin (Vitamin B12 Injection -) 1,000 mcg IM DAILY [facility] Stop: 06/21/17 10:01 Last Admin: 06/19/17 09:54 Dose: 1,000 mcg Donepezil HCl (Aricept -) 10 mg PO HS [facility] Last Admin: 06/18/17 21:25 Dose: 10 mg Gabapentin (Neurontin -) 300 mg PO HS [facility] Heparin Sodium (Porcine) (Heparin -) 5,000 unit SQ BID [facility] Last Admin: 06/19/17 09:50 Dose: 5,000 unit Insulin Aspart (Novolog Vial Sliding Scale -) 1 vial SQ ACHS [facility] PRN Reason: Protocol Last Admin: 06/19/17 07:01 Dose: Not Given Losartan Potassium (Cozaar -) 50 mg PO DAILY [facility] Last Admin: 06/19/17 09:50 Dose: 50 mg Metformin HCl (Glucophage -) 500 mg PO TIDAC [facility] Last Admin: 06/19/17 07:00 Dose: 500 mg Metoprolol Succinate (Toprol Xl -) 100 mg PO DAILY [facility] Last Admin: 06/19/17 09:50 Dose: 100 mg Ondansetron HCl (Zofran Injection) 4 mg IVPB Q4H PRN PRN Reason: NAUSEA AND/OR VOMITING Quetiapine Fumarate (Seroquel -) 25 mg PO [facility] Last Admin: 06/18/17 21:25 Dose: 25 mg Rosuvastatin Calcium (Crestor -) 10 mg PO [facility] Last Admin: 06/18/17 21:25 Dose: 10 mg Sitagliptin Phosphate (Januvia -) 25 mg PO DAILY@0700 [facility] Last Admin: 06/19/17 07:01 Dose: 25 mg - Objective Vital Signs: Vital Signs Temperature 98 F 06/19/17 10:00 Pulse Rate 86 06/19/17 10:00 Respiratory Rate 18 06/19/17 10:00 Blood Pressure 134/66 06/19/17 10:00 O2 Sat by Pulse Oximetry (%) 100 06/19/17 06:00 Musculoskeletal: Yes: Other (pain and tenderness bilateral knees) Neurological: Yes: Alert, Other (examined with assistance of legal compliance officer. limited cooperation due to pain. full strenght in arms. limited cooperation with legs because of pain.) Labs: CBC, BMP 06/18/17 07:30 06/18/17 07:30 - ....Imaging Ultrasound: Report Reviewed, Image Reviewed (marked atrophy, no acute changes or infarction) Problem List - Problems (1) Altered mental state Assessment/Plan: In elderly woman with dehydration and initially elevated WBC which has corrected. She is improving but not at baseline which may take some time. For completion, would check TSH, B12, RPR. Code(s): R41.82 - ALTERED MENTAL STATUS, UNSPECIFIED
[2017-06-19] MEDS ORDERED: ACETAMINOPHEN WITH CODEINE 300MG/30MG TABLET PO ONE (14:00)
[2017-06-19] MEDS ORDERED: INSULIN (NOVOLOG) ASPART 100 UNITS/ML 10ML VIAL ONE (21:35)
[2017-06-19] MEDS: QUEtiapine FUMARATE 25 MG TABLET (FP) PO SCH (21:38)
[2017-06-19] MEDS: ROSUVASTATIN CA 10 MG TABLET (FP) PO SCH (21:38)
[2017-06-19] MEDS: DONEPEZIL HCL 5 MG TABLET (FP) PO SCH (21:38)
[2017-06-19] MEDS ORDERED: GABAPENTIN 300 MG CAPSULE (FP) PO SCH (22:00)
[2017-06-20 05:26] VITALS: BP 132/66; PULSE 75; TEMP 98
[2017-06-20] MEDS: metFORMIN HCL 500 MG TABLET (FP) PO SCH ×2 (07:03→10:21)
[2017-06-20] MEDS: sitaGLIPtin PHOSPHATE 25 MG TABLET (FP) PO SCH (07:04)
[2017-06-20] MEDS: INSULIN SLIDING SCALE (NOVOLOG) 1 VIAL SQ SCH (07:04)
[2017-06-20] MEDS: ASPIRIN 81 MG CHEWABLE TABLETS PO SCH (10:18)
[2017-06-20] MEDS: METOPROLOL SUCCINATE 100 MG TAB.SR.24H (FP) PO SCH (10:18)
[2017-06-20] MEDS: LOSARTAN POTASSIUM 50 MG TABLET (FP) PO SCH (10:18)
[2017-06-20] MEDS: HEPARIN NA (PORCINE) 5,000 UNITS/ML 1ML VIAL SQ SCH (10:20)
[2017-06-20] MEDS: ACETAMINOPHEN 325 MG TABLET (FP) PO PRN (10:20)
[2017-06-20] MEDS: CHOLECALCIFEROL (VITAMIN D3) 1,000 UNIT TABLET (FP) PO SCH (10:20)
[2017-06-20] MEDS: CYANOCOBALAMIN (VITAMIN B-12) 1000 MCG/1 ML VIAL IM SCH (11:04)
== END 2017-06-20 12:00 ==
LOC: FER 15:49 → FM/S 21:32 → OBSVTOIN 21:32 → INTOOBSV 21:32 → FM/S 06-17 05:09
PROVIDERS: ADMIT Internal Medicine; ATTEND Nurse Practitioner Family
PROC: 3E013GC Introduction of Other Therapeutic Substance into Subcutaneous Tissue, Percutaneous Approach (ICD-10-PCS; principal; 2017-06-16)
PROC: 3E023GC Introduction of Other Therapeutic Substance into Muscle, Percutaneous Approach (ICD-10-PCS; 2017-06-16)
PROC: 3E0337Z Introduction of Electrolytic and Water Balance Substance into Peripheral Vein, Percutaneous Approach (ICD-10-PCS; 2017-06-16)
DX: R41.82 Altered mental status, unspecified (principal); E86.0 Dehydration; E11.9 Type 2 diabetes mellitus without complications; R19.7 Diarrhea, unspecified; R14.0 Abdominal distension (gaseous); I10 Essential (primary) hypertension; I25.2 Old myocardial infarction; F03.90 Unspecified dementia, unspecified severity, without behavioral disturbance, psychotic disturbance, mood disturbance, and anxiety; F41.9 Anxiety disorder, unspecified; E78.5 Hyperlipidemia, unspecified; Z95.1 Presence of aortocoronary bypass graft; Z79.82 Long term (current) use of aspirin; Z79.84 Long term (current) use of oral hypoglycemic drugs; Z88.8 Allergy status to other drugs, medicaments and biological substances; Z86.73 Personal history of transient ischemic attack (TIA), and cerebral infarction without residual deficits; M81.0 Age-related osteoporosis without current pathological fracture; Z90.49 Acquired absence of other specified parts of digestive tract; R26.9 Unspecified abnormalities of gait and mobility; D72.829 Elevated white blood cell count, unspecified; E87.1 Hypo-osmolality and hyponatremia; R44.2 Other hallucinations
CPT/HCPCS: 36415; 70450-TC; 71010-TC; 73562-TC-LT; 73562-TC-RT; 74000-TC; 80048; 80053; 81003; 82140; 82607; 83036; 84443; 85025; 86593; 87040; 87086; 93005; 97116-GP; 97161-GP; 99282-25; G0378; J1644